=== PATIENT | female | born 1985 | race Caucasian/White ===

== ENCOUNTER 2019-02-04 03:35 | Emergency (ER) | payer OTHER ==
[~2019-02-04] VITALS: Ht 165.1 cm; Wt 79.4 kg
[2019-02-04 04:03] LABS: URINE BILIRUBIN NEGATIVE (Negative); URINE BLOOD 2+ (Negative); URINE CLARITY CLEAR; URINE COLOR YELLOW; URINE GLUCOSE-RANDOM 2+ (Negative); URINE KETONES NEGATIVE (Negative); URINE LEUKOCYTES-REFLEX NEGATIVE (Negative); URINE NITRITE-REFLEX NEGATIVE (Negative); URINE PROTEIN NEGATIVE (Negative); URINE SPECIFIC GRAVITY <= 1.005 (1.005-1.030); URINE UROBILINOGEN 0.2 E.U./dl (0.2-1.0)
[2019-02-04 04:04] LABS: ABSOLUTE BASOPHILS 0.1 thou/uL (0.0-0.2); ABSOLUTE EOSINOPHILS 0.5 thou/uL (0.0-0.7); ABSOLUTE LYMPHOCYTES 2.1 thou/uL (0.8-5.3); ABSOLUTE MONOCYTES 0.7 thou/uL (0.0-1.2); ABSOLUTE NEUTROPHILS 9.2 thou/uL (1.6-8.1); BASOPHILS 0.5 %; EOSINOPHILS 3.7 %; HEMATOCRIT 42.4 % (37.0-47.0); HEMOGLOBIN 14.8 gm/dL (12.0-15.0); LYMPHOCYTES 16.4 %; MCH 31.3 pg (26.0-34.0); MCV 89.3 fL (80.0-100.0); MONOCYTES 5.8 %; MPV 7.8 fl. (7.2-11.1); NUCLEATED RBCS 0 /100WBC; PLATELET COUNT* 463 thou/uL (150-400); POLYS 73.6 %; RBC 4.75 mil/uL (4.20-5.00); RDW-CV 12.1 % (10.5-14.5); WBC 12.5 thou/uL (4.0-11.0)
[2019-02-04 04:10] LABS: BACTERIA-REFLEX None Seen /HPF (None Seen); CASTS None Seen /LPF (None Seen); CRYSTALS None Seen /LPF (None Seen); SQUAMOUS 0-3 Few /LPF (0-3); URINE RBC 3-10 Few /HPF (0-2); URINE WBC-REFLEX None Seen /HPF (0-5)
[2019-02-04 04:12] LABS: CALCIUM 9.4 mg/dL (8.5-10.1); CREATININE 0.8 mg/dL (0.6-1.3); POTASSIUM 3.8 mmol/L (3.5-5.1)
[2019-02-04 04:16] LABS: ALBUMIN 4.1 g/dL (3.4-5.0); TOTAL BILIRUBIN 0.2 mg/dL (<0.1-1.0); TOTAL PROTEIN 7.9 g/dL (6.4-8.2)
[2019-02-04] MEDS ORDERED: SERTRALINE HCL100 MG PO (04:18)
[2019-02-04] MEDS ORDERED: LISINOPRIL2.5 MG PO (04:19)
[2019-02-04] MEDS ORDERED: SIMVASTATIN10 MG PO (04:20)
[2019-02-04] MEDS ORDERED: ABILIFY10 MG PO (04:20)
[2019-02-04] MEDS ORDERED: COLACE100 MG PO (04:21)
[2019-02-04] MEDS ORDERED: FISH OIL 1,0001 EAC9 PO (04:21)
[2019-02-04] MEDS ORDERED: LANTUS SUBQ ×3 (04:23→04:24)
[2019-02-04] MEDS ORDERED: NORCO 5-325 TA1 EAC1 PO (05:46)
[2019-02-04] MEDS ORDERED: ZOFRAN ODT4 MG DISSOLVE (05:46)
[2019-02-04 05:57] VITALS: BP 116/68
== END 2019-02-04 05:59 | disposition home or self-care (01) ==
LOC: M.ERS 03:35
PROVIDERS: Emergency Medicine Emergency Medical Services
DX: R10.31 Right lower quadrant pain (principal); R11.2 Nausea with vomiting, unspecified; R19.7 Diarrhea, unspecified; Z88.6 Allergy status to analgesic agent; Z88.8 Allergy status to other drugs, medicaments and biological substances

== ENCOUNTER 2020-02-10 16:20 | Emergency (ER) | payer OTHER ==
[~2020-02-10] VITALS: Ht 165.1 cm; Wt 81.7 kg
[~2020-02-10 16:20] MED LIST: ABILIFY10 MG PO; COLACE100 MG PO; FISH OIL 1,0001 EAC9 PO; LANTUS SUBQ; LISINOPRIL2.5 MG PO; NORCO 5-325 TA1 EAC1 PO; SERTRALINE HCL100 MG PO; SIMVASTATIN10 MG PO; ZOFRAN ODT4 MG DISSOLVE
[2020-02-10] MEDS ORDERED: IBUPROFEN 800800 M1 PO (18:04)
[2020-02-10 18:12] VITALS: BP 122/70
== END 2020-02-10 18:13 | disposition home or self-care (01) ==
LOC: M.ERS 16:20
DX: S09.90XA Unspecified injury of head, initial encounter (principal); I10 Essential (primary) hypertension; E11.9 Type 2 diabetes mellitus without complications; F31.9 Bipolar disorder, unspecified; Z98.890 Other specified postprocedural states; Z79.899 Other long term (current) drug therapy; Z79.4 Long term (current) use of insulin; Z88.8 Allergy status to other drugs, medicaments and biological substances; W01.0XXA Fall on same level from slipping, tripping and stumbling without subsequent striking against object, initial encounter; Y93.89 Activity, other specified; Y92.89 Other specified places as the place of occurrence of the external cause; Y99.8 Other external cause status

== ENCOUNTER 2021-04-20 19:40 | Emergency (ER) | payer OTHER ==
[~2021-04-20] VITALS: Ht 165.1 cm; Wt 86.2 kg
--- NOTE | ~2021-04-20 | EKG ---
[place] [address] ELECTROCARDIOGRAM REPORT Name: YAZMIN LYON Room: [facility]#: [id number] Admission: 04/20/21 Attend Phys: Discharge: Date of : 85 Date of Service: 04/20/212115 Report #: [id number] THIS REPORT FOR: //name// [facility] ED Test Date: 2021-04-20 Test Time: 21:16:16 Pat Name: YAZMIN LYON Department: Room: Gender: Home Service Consultant: [place] : 1985 Requested By: Dior Dixon Order Number: [id number] MD: Measurements Intervals [place] Rate: 91 P: 41 PA: 160 QRS: 11 QRSD: 100 T: 2 QT: 367 QTc: 452 Interpretive Statements Sinus rhythm Borderline T abnormalities, inferior leads Baseline wander in lead(s) II,III,aVF No previous ECG available for comparison [email or web address] By: 15 15 Epiphany EpiphanyMD /EPI
[~2021-04-20 19:40] MED LIST changes: +IBUPROFEN 800800 M1 PO
[2021-04-20] MEDS ORDERED: LISINOPRIL10 MG PO (19:44)
[2021-04-20] MEDS ORDERED: ZOCOR 10 MG TAB10 MG PO (19:44)
[2021-04-20] MEDS ORDERED: ABILIFY15 MG PO (19:44)
[2021-04-20] MEDS ORDERED: SERTRALINE HCL200 MG PO (19:45)
[2021-04-20 20:16] LABS: INFLUENZA A ANTIGEN Negative (Negative); INFLUENZA B ANTIGEN Negative (Negative)
[2021-04-20 21:12] LABS: URINE BILIRUBIN NEGATIVE (Negative); URINE BLOOD NEGATIVE (Negative); URINE CLARITY CLEAR; URINE COLOR YELLOW; URINE GLUCOSE-RANDOM 3+ (Negative); URINE KETONES TRACE (Negative); URINE LEUKOCYTES-REFLEX NEGATIVE (Negative); URINE NITRITE-REFLEX NEGATIVE (Negative); URINE PROTEIN NEGATIVE (Negative); URINE UROBILINOGEN 0.2 E.U./dl (0.2-1.0)
[2021-04-20 21:15] LABS: HEMATOCRIT 37.3 % (37.0-47.0); HEMOGLOBIN 13.1 gm/dL (12.0-15.0); MCH 31.8 pg (26.0-34.0); MCHC 35.2 g/dL (28.0-37.0); MCV 90.2 fL (80.0-100.0); MPV 7.9 fl. (7.2-11.1); NUCLEATED RBCS 0 /100WBC; PLATELET COUNT* 302 thou/uL (150-400); RBC 4.13 mil/uL (4.20-5.00); RDW-CV 12.2 % (10.5-14.5); WBC 9.5 thou/uL (4.0-11.0)
[2021-04-20 21:23] LABS: CALCIUM 8.2 mg/dL (8.5-10.1); CREATININE 0.9 mg/dL (0.6-1.3); POTASSIUM 3.8 mmol/L (3.5-5.1)
[2021-04-20 21:28] LABS: ALBUMIN 3.5 g/dL (3.4-5.0); TOTAL BILIRUBIN 0.2 mg/dL (<0.1-1.0)
[2021-04-20 22:08] LABS: ABSOLUTE BASOPHILS 0.1 thou/uL (0.0-0.2); ABSOLUTE EOSINOPHILS 0.2 thou/uL (0.0-0.7); ABSOLUTE LYMPHOCYTES 0.4 thou/uL (0.8-5.3); ABSOLUTE MONOCYTES 0.5 thou/uL (0.0-1.2); ABSOLUTE NEUTROPHILS 8.4 thou/uL (1.6-8.1); PLATELET ESTIMATE ADEQUATE
[2021-04-20 22:24] VITALS: BP 142/96
--- NOTE | 2021-04-22 12:23 | EKG ---
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[place] : 1985 Requested By: Dior Dixon Order Number: [id number] MD: Jason Webb Measurements Intervals [place] Rate: 91 P: 41 [place]: 160 QRS: 11 QRSD: 100 T: 2 QT: 367 QTc: 452 Interpretive Statements Sinus rhythm Borderline T abnormalities, inferior leads Baseline wander in lead(s) II,III,aVF No previous ECG available for comparison Electronically Signed On 04-22-2021 12:22:47 C ARCHITECT by Jason Webb [email or web address] <ELECTRONICALLY SIGNED> By: Jason Webb MD, FAC 04/22/21 1222 15 15 Jason Webb MD, [facility] /EPI
== END 2021-04-20 22:24 | disposition home or self-care (01) ==
LOC: M.ERS 19:40
PROVIDERS: Personal Emergency Response Attendant
DX: B34.9 Viral infection, unspecified (principal); Z20.822 Contact with and (suspected) exposure to COVID-19; E11.65 Type 2 diabetes mellitus with hyperglycemia; R09.81 Nasal congestion; I10 Essential (primary) hypertension; F31.9 Bipolar disorder, unspecified; Z98.890 Other specified postprocedural states; Z79.899 Other long term (current) drug therapy; Z79.4 Long term (current) use of insulin; Z88.8 Allergy status to other drugs, medicaments and biological substances